=== PATIENT | female | born 1960 | race Caucasian/White ===

== ENCOUNTER 2017-03-19 19:03 | Emergency (ER) | payer OTHER ==
[2017-03-19 19:07] VITALS: BP 108/72; PULSE 73; TEMP 98.4; BMI 32.5
[2017-03-19] MEDS ORDERED: IBUPROFEN 600 MG TABLET (FP) PO ONE (19:09)
--- NOTE | 2017-03-19 19:09 | PDOC ---
History of Present Illness - General Chief Complaint: Injury Stated Complaint: B/L ANKLE PAIN Time Seen by Provider: 03/19/17 19:08 History Source: Patient Exam Limitations: No Limitations - History of Present Illness Initial Comments: 03/19/17 19:21 This is an obese 56-year-old female who 2 days ago slipped while going down the stairs and twisted her ankles bilateral. Patient said that she fell down the stairs primarily on her butt. She did not hit her head did not pass out denies any other injuries. Patient said since falling on the stairs that she has had increased pain in her ankles bilateral but did not take anything for the pain. PAST MEDICAL HISTORY: no significant history PAST SURGICAL HISTORY: no significant history FAMILY HISTORY: no pertinant history SOCIAL HISTORY: Pt lives with family and is employed. MEDICATIONS: reviewed ALLERGIES: As per nursing notes Review of Systems General: No fevers or chills, no weakness, no weight loss HEENT: No change in vision. No sore throat,. No ear pain CardioVascular: No chest pain or shortness of breath Respiratory:No cough, or wheezing. Gastrointestinal: no nausea, vomitting, diarrhea or constipation, No rectal bleeding Genitourinary: No dysuria, hematuria, or frequency Musculoskeletal: Bilateral ankle pain Neurologic: No headache, vertigo, dizziness or loss of consciousness Psychiatric: nor depression Skin: No rashes or easy bruising Endocrine: no increased thirst or abnormal weight change Allergic: no skin or latex allergy All other systems reviewed and normal GENERAL: The patient is awake, alert, and fully oriented, in no acute distress. HEAD: Normal with no signs of trauma. EYES: Pupils equal, round and reactive to light, extraocular movements intact, sclera anicteric, conjunctiva clear. EXTREMITIES: There is some mild swelling and tenderness on palpation bilateral of the lateral malleolus. There is no tenderness on palpation base of fifth metatarsal neurovascular distal is intact. NEUROLOGICAL: Normal speech, normal gait. PSYCH: Normal mood, normal affect. SKIN: Warm, Dry, normal turgor, no rashes or lesions noted. 03/19/17 19:39 X-rays ankles bilateral no acute bony pathology no fractures or dislocations reviewed by me Assessment and plan: This is a 56-year-old female who comes in complaining of bilateral ankle pain and discomfort status post going down the stairs on her butt and twisting her ankles bilateral 2 days ago. Patient is been able to ambulate with some difficulty but hasn't taken anything for the pain. Patient had x-rays were negative for any fractures. Patient given Motrin here in the ER for pain and discharged home and can follow-up with her primary care doctor Past History - Past Medical History Allergies/Adverse Reactions: Allergies Allergy/AdvReac Type Severity Reaction Status Date / Time No Known Allergies Allergy Verified 01/06/17 20:31 Home Medications: Ambulatory Orders NK [No Known Home Medication] 03/19/17 HTN: Yes Seizures: Yes - Psycho/Social/Smoking Cessation Hx Anxiety: No Suicidal Ideation: No Smoking History: Current some day smoker Have you smoked in the past 12 months: Yes Number of Cigarettes Smoked Daily: 1 Information on smoking cessation initiated: Yes 'Breaking Loose' booklet given: 05/18/14 Hx Alcohol Use: Yes (SOCIAL) Drug/Substance Use Hx: No Substance Use Type: None Hx Substance Use Treatment: No *Physical Exam - Vital Signs Last Vital Signs Temp Pulse Resp BP Pulse Ox 98.4 F 73 16 108/72 99 03/19/17 19:05 03/19/17 19:05 03/19/17 19:05 03/19/17 19:05 03/19/17 19:05 *DC/Admit/Observation/Transfer Diagnosis at time of Disposition: Sprain of right ankle Qualifiers: Encounter type: initial encounter Involved ligament of ankle: unspecified ligament Qualified Code(s): S93.401A - Sprain of unspecified ligament of right ankle, initial encounter Sprain of left ankle Qualifiers: Encounter type: initial encounter Involved ligament of ankle: unspecified ligament Qualified Code(s): S93.402A - Sprain of unspecified ligament of left ankle, initial encounter - Discharge Dispostion Disposition: HOME Condition at time of disposition: Stable Admit: No - Patient Instructions Printed Discharge Instructions: Ankle Sprain Additional Instructions: Purchase some [id number] ibuprofen or Aleve and take as directed on the bottle as needed for pain. Wear the Chao wrap as needed for additional support when walking. Return to the emergency department immediately with ANY new, persistent or worsening symptoms. Continue any medications as previously prescribed by your physician. You should follow up with your primary doctor as soon as possible regarding today's emergency department visit. . Please make sure your doctor reviews the results of your emergency evaluation. Thank you for coming to the Emergency Department today for your care. It was a pleasure to see you today. Please note that your evaluation is INCOMPLETE until you follow-up with your doctor.
== END 2017-03-19 19:48 | disposition home or self-care (01) ==
LOC: FER 19:03
DX: S93.401A Sprain of unspecified ligament of right ankle, initial encounter (principal); S93.402A Sprain of unspecified ligament of left ankle, initial encounter; W10.9XXA Fall (on) (from) unspecified stairs and steps, initial encounter; Y93.89 Activity, other specified; Y92.9 Unspecified place or not applicable; F17.210 Nicotine dependence, cigarettes, uncomplicated; I10 Essential (primary) hypertension
CPT/HCPCS: 73610-TC-LT; 73610-TC-RT; 99281-25

== ENCOUNTER 2017-07-31 23:32 | Emergency (ER) | payer OTHER ==
--- NOTE | 2017-07-31 23:35 | PDOC ---
History of Present Illness - General Stated Complaint: PASSED OUT Time Seen by Provider: 07/31/17 23:34 Past History - Past Medical History Allergies/Adverse Reactions: Allergies Allergy/AdvReac Type Severity Reaction Status Date / Time No Known Allergies Allergy Verified 01/06/17 20:31 Home Medications: Ambulatory Orders Nitrofurantoin Monohyd/M-Cryst [Macrobid -] 100 mg PO BID #14 capsule 08/01/17 HTN: Yes Seizures: Yes - Suicide/Smoking/Psychosocial Hx Smoking History: Current some day smoker Have you smoked in the past 12 months: Yes Number of Cigarettes Smoked Daily: 1 'Breaking Loose' booklet given: 05/18/14 Hx Alcohol Use: Yes (SOCIAL) Drug/Substance Use Hx: No Substance Use Type: None Hx Substance Use Treatment: No Review of Systems - Review of Systems Constitutional: Yes: Loss of Appetite, Weakness. No: Symptoms Reported, See HPI , Chills, Diaphoresis, Fever, Malaise, Night Sweats, Weight Stable, Unintentional Wgt. Loss, Unexplained wgt Loss, Other HEENTM: No: Symptoms Reported, See HPI, Eye Pain, Blurred Vision, Tearing, Recent change in vision, Double Vision, Cataracts, Ear Pain, Ocular Prothesis, Ear Discharge, Nose Pain, Nose Congestion, Tinnitus, Nose Bleeding, Hearing Loss , Throat Pain, Throat Swelling, Mouth Pain, Dental Problems, Difficulty Swallowing, Mouth Swelling, Other Respiratory: No: Symptoms reported, See HPI, Cough, Orthopnea, Shortness of Breath, SOB with Exertion, SOB at Rest, Stridor, Wheezing, Productive cough, Hemoptysis, Other Cardiac (ROS): No: Symptoms Reported, See HPI, Chest Pain, Edema, Irregular Heart Rate, Lightheadedness, Palpitations, Syncope, Chest Tightness, Other ABD/GI: No: Symptoms Reported, See HPI, Abdominal Distended, Abd. Pain w/ defecation, Blood Streaked Bowels, Constipated, Diarrhea, Difficulty Swallowing , Nausea, Poor Appetite, Poor Fluid Intake, Rectal Bleeding, Vomiting, Indigestion, Abdominal cramping, Tarry Stools, Other : No: Symptoms Reported, See HPI, Burning, Dysuria, Discharge, Frequency, Flank Pain, Hematuria, Incontinence, Pain, Urgency, Testicular Mass, Testicular Swelling, Lesions, Testicular Pain, Other Musculoskeletal: No: Symptoms Reported, See HPI, Back Pain, Gout, Joint Pain, Joint Swelling, Muscle Pain, Muscle Weakness, Neck Pain, Joint Stiffness, Other Integumentary: No: Symptoms Reported, See HPI, Bruising, Change in Color, Change in Hair/Nails, Dryness, Erythema, Flushing, Lesions, Lumps, Pallor, Pruritus, Rash, Sweating, Other Neurological: Yes: Weakness, Dizziness. No: Symptoms reported, See HPI, Headache, Numbness, Paresthesia, Pre-Existing Deficit, Seizure, Tingling, Tremors, Unsteady Gait, Ataxia, Other Psychiatric: Yes: Anxiety, Depression, Stressors, Mood Swings. No: Frequent Crying, Sleep Pattern Change, Emotional Problems, Change in Appetite, Other Endocrine: No: Symptoms Reported, See HPI, Excessive Sweating, Flushing, Intolerance to Cold, Intolerance to Heat, Increased Hunger, Increased Thirst, Increased Urine, Unexplained Weight Gain, Unexplained Weight Loss, Change in Weight, Other Hematologic/Lymphatic: No: Symptoms Reported, See HPI, Anemia, Blood Clots, Easy Bleeding, Easy Bruising, Bleeding Diathesis, Lymph Node Abnormalities, Swollen Glands, Other *Physical Exam - Physical Exam General Appearance: Yes: Nourished, Appropriately Dressed. No: Apparent Distress HEENT: positive: EOMI, TONYA, Normal ENT Inspection, Normal Voice, Symmetrical, TMs Normal, Pharynx Normal Neck: positive: Trachea midline, Supple Respiratory/Chest: positive: Lungs Clear, Normal Breath Sounds Cardiovascular: positive: Regular Rhythm, Regular Rate, S1, S2 Gastrointestinal/Abdominal: positive: Normal Bowel Sounds, Flat, Soft Musculoskeletal: positive: Normal Inspection. negative: CVA Tenderness Extremity: positive: Normal Capillary Refill, Normal Inspection, Normal Range of Motion, Tender, Pelvis Stable Integumentary: positive: Normal Color, Dry, Warm Neurologic: positive: automobile drivers II-XII NML intact, Fully Oriented, Alert, Normal Mood/ Affect, Normal Response, Motor Strength 5/5 Deep Tendon Reflexes: Ankle (L): 2+, Ankle (R): 2+, Knee (L): 2+, Knee (R): 2+, Bicep (L): 2+, Bicep (R): 2+ ED Treatment Course - LABORATORY CBC & Chemistry Diagram: 08/01/17 00:01 08/01/17 00:01 - ADDITIONAL ORDERS Additional order review: 08/01/17 02:56 labs are normal; UA is cloudy; pt will be treated for UTI/cystitis - RADIOLOGY Radiology Studies Ordered: 08/01/17 02:[address] normal Medical Decision Making - Medical Decision Making 08/01/17 00:43 Patient Name: KARLIE ROBERTO THIS IS A PRELIMINARY REPORT FROM [facility] DATE OF SERVICE: 2017-07-31 23:35:06 IMAGES: 69 EXAM: CT HEAD WITHOUT CONTRAST No acute brain parenchymal abnormality. No hemorrhage, mass or acute territorial infarct. Age-related involutional changes and chronic small vessel ischemic changes. Opacification one right ethmoid air cell. Visualized mastoid air cells clear. THIS DOCUMENT HAS BEEN ELECTRONICALLY SIGNED *DC/Admit/Observation/Transfer Diagnosis at time of Disposition: Weakness, Decreased appetite, UTI (urinary tract infection) - Discharge Dispostion Disposition: HOME Condition at time of disposition: Stable Admit: No - Prescriptions Prescriptions: Nitrofurantoin Monohyd/M-Cryst [Macrobid -] 100 mg PO BID #14 capsule - Patient Instructions Printed Discharge Instructions: DI for Muscle Weakness
[2017-07-31] MEDS ORDERED: SODIUM CHLORIDE 0.9% 500 ML INFUS.BAG IV ONE (23:43)
[2017-08-01 00:35] LABS: BASOPHIL 0.7 % (0-2.0); EOSINOPHIL 2.2 % (0-4.5); MCH 29.3 pg (25.7-33.7); MCHC 33.9 g/dl (32.0-36.0); MEAN CELL VOLUME 86.5 fl (80-96); MEAN PLT VOLUME 9.5 fl (7.5-11.1); NEUTROPHILS 42.9 % (42.8-82.8); PLATELET COUNT 232 K/MM3 (134-434); RDW 14.8 % (11.6-15.6); WHITE BLOOD COUNT 7.7 K/mm3 (4.0-10.0)
[2017-08-01 00:48] LABS: INR 1.19 (0.82-1.09); PROTHROMBIN TIME (PATIENT) 13.1 SEC (9.98-11.88)
[2017-08-01 00:57] LABS: ALBUMIN 3.8 g/dl (3.4-5.0); ANION GAP 11 (8-16); BILIRUBIN,TOTAL 0.8 mg/dL (0.2-1.0); CALCIUM 9.1 mg/dL (8.5-10.1); CO2 26 mmol/L (21-32); CREATININE 0.8 mg/dL (0.55-1.02); GLUCOSE,RANDOM 100 mg/dL (74-106); SGOT/AST 28 U/L (15-37); SGPT/ALT 46 U/L (12-78); TOT PROT 7.1 g/dl (6.4-8.2)
[2017-08-01 00:58] LABS: ALK PHOS 63 U/L (45-117)
[2017-08-01] MEDS ORDERED: SODIUM CHLORIDE 0.9% 1000 ML INFUS.BAG IV ONE (01:42)
[2017-08-01] MEDS ORDERED: NITROFURANTOIN MACROCRYSTAL 50 MG CAPSULE (FP) PO SCH (01:45)
[2017-08-01] MEDS ORDERED: NITROFURANTOIN MACROCRYSTAL 50 MG CAPSULE (FP) ONE (01:51)
[2017-08-01 02:02] VITALS: BP 122/80; PULSE 72; TEMP 97.3; BMI 33.4
[2017-08-01 02:05] LABS: URINE APPEARANCE CLOUDY; URINE BILIRUBIN NEGATIVE (NEGATIVE); URINE BLOOD 3+ (NEGATIVE); URINE COLOR YELLOW; URINE GLUCOSE (UA) NEGATIVE (NEGATIVE); URINE KETONE NEGATIVE (NEGATIVE); URINE NITRITE NEGATIVE (NEGATIVE); URINE PROTEIN NEGATIVE (NEGATIVE); URINE UROBILINOGEN NEGATIVE mg/dL (0.2-1.0)
[2017-08-01 02:13] LABS: URINE BACTERIA FEW /hpf (NONE SEEN); URINE HYALINE CAST 1 /lpf; URINE MUCUS RARE; URINE RBC 11 /hpf (0-3); URINE WBC 12 /hpf (3-5)
[2017-08-01 11:09] LABS: URINE LEUK ESTERASE TRACE (NEGATIVE)
== END 2017-08-01 02:27 | disposition home or self-care (01) ==
LOC: FER 23:32
PROC: 3E0337Z Introduction of Electrolytic and Water Balance Substance into Peripheral Vein, Percutaneous Approach (ICD-10-PCS; principal; 2017-07-31)
DX: N39.0 Urinary tract infection, site not specified (principal); R53.1 Weakness; R63.0 Anorexia
CPT/HCPCS: 36415; 70450-TC; 80053; 80178; 81003; 81015; 85025; 85610; 99282-25

== ENCOUNTER 2018-03-01 13:22 | Emergency (ER) | payer OTHER ==
--- NOTE | 2018-03-01 13:24 | PDOC ---
History of Present Illness - General Chief Complaint: Overdose Stated Complaint: PER TOOK TOO MANY PILLS Time Seen by Provider: 03/01/18 13:24 History Source: Patient, Spouse Exam Limitations: Clinical Condition - History of Present Illness Initial Comments: 57 yo F history chronic back pain presents with OD on unknown substance. Very limited history from patient, who is somewhat lethargic. She states she took about 6-7 pills approximately 1 hour ago due to pain. She denies SI. states he does not know her medications, and apparently the pills were all sitting in a drawer, so he took them and threw them all away. He did keep the bottles. Past History - Past Medical History Allergies/Adverse Reactions: Allergies Allergy/AdvReac Type Severity Reaction Status Date / Time No Known Allergies Allergy Verified 03/01/18 13:29 Home Medications: Ambulatory Orders Gabapentin [Neurontin -] 100 mg PO Q8H 03/01/18 Meloxicam 15 mg PO PRN 03/01/18 Omeprazole 40 mg PO DAILY 03/01/18 Pravastatin Sodium [Pravachol (Nf)] 40 mg PO DAILY 03/01/18 Tramadol HCl 50 mg PO PRN 03/01/18 HTN: Yes Psychiatric Problems: Yes Seizures: Yes - Suicide/Smoking/Psychosocial Hx Smoking History: Current some day smoker Have you smoked in the past 12 months: Yes Number of Cigarettes Smoked Daily: 1 'Breaking Loose' booklet given: 05/18/14 Hx Alcohol Use: Yes (SOCIAL) Drug/Substance Use Hx: No Substance Use Type: None Hx Substance Use Treatment: No Review of Systems - Review of Systems Able to Perform ROS?: No *Physical Exam - Physical Exam Comments: GENERAL: Lethargic, responds to verbal stimuli, answers some qusetions. No acute distress HEAD: No signs of trauma EYES: PERRLA, EOMI, sclera anicteric, conjunctiva clear ENT: Auricles normal inspection, hearing grossly normal, nares patent, oropharynx clear without exudates. Dry mucosa NECK: Normal ROM, supple, no lymphadenopathy, JVD, or masses LUNGS: Breath sounds equal, clear to auscultation bilaterally. No wheezes, and no crackles HEART: Regular rate and rhythm, normal S1 and S2, no murmurs, rubs or gallops ABDOMEN: Soft, nontender, normoactive bowel sounds. No guarding, no rebound. No masses EXTREMITIES: Normal range of motion, no edema. No clubbing or cyanosis. No cords, erythema, or tenderness NEUROLOGICAL: CN II-XII grossly intact. Moving all extremities. Motor and sensation intact. SKIN: Warm, Dry, normal turgor, no rashes or lesions noted. Heart Score/ECG Review - ECG Impressions Comment:: EKG read 13:43- Sinus tach 105, QTc 462. Occasional PVCs. ED Treatment Course - LABORATORY CBC & Chemistry Diagram: 03/01/18 13:59 03/01/18 13:59 Medical Decision Making - Critical Care Time Total Critical Care Time (minutes): 45 Critical Care Statement: The care of this patient involved high complexity decision making to prevent further life threatening deterioration of the patient 's condition and/or to evaluate & treat vital organ system(s) failure or risk of failure. - Medical Decision Making 03/01/18 13:36 Contacted patient's pharmacy to determine her medication- meloxicam, gabapentin , and tramadol. As her pupils are not constricted, tramadol is unlikely. The gabapentin is in capsule form, and patient states she did not take any capsules. Meloxicam unlikely, as it is more likely to cause GI symptoms than lethargy. is attempting to get all pill bottles from home. 03/01/18 13:40 Other medications available in the house included fluvoxamine and quetiapine. Patient has a normal QTc on EKG. Fluvoxamine more likely to cause serotonin syndrome, which is not consistent with patient's clinical appearance. 03/01/18 13:48 Case d/w Natail at [facility] poison control. Now states she may have had xanax, as he has it at home. As per poison control, will not give activated charcoal in light of lethargy, risk of aspiration. Also if this is xanax, symptoms may worsen. This may be a combination of meds, which may include tramadol, xanax, meclizine, and/or gabapentin. Recommended supportive care, f/u labs. Will call back to f/u. 03/01/18 16:40 Patient is intermittently asleep and awake. She is more alert than before, but still drowsy. Lab called with positive tox screen. Now both patient and deny any benzos in the house, however, she "grabbed pills from a drawer", so they cannot be certain. Will continue to monitor until she is more alert, then will DC home. 03/01/18 18:01 Awake and alert. Stable for DC home. *DC/Admit/Observation/Transfer Diagnosis at time of Disposition: Benzodiazepine overdose Qualifiers: Encounter type: initial encounter Injury intent: accidental or unintentional Qualified Code(s): T42.4X1A - Poisoning by benzodiazepines, accidental ( unintentional), initial encounter - Discharge Dispostion Disposition: HOME Condition at time of disposition: Stable Admit: No - Referrals - Patient Instructions Printed Discharge Instructions: DI for Drug Overdose in Adults Additional Instructions: In the future, DO NOT use medications that were not prescribed to you. Do NOT use medications in a manner that was not prescribed (for example, taking extra pills). This is extremely dangerous, especially if you are not even aware of what the pills are. If you have severe pain in the future, seek treatment with either your physician or in an emergency room, so that it may be done safely. - Post Discharge Activity
[2018-03-01] MEDS ORDERED: SODIUM CHLORIDE 1,000 ML IV STA ×2 (13:31→14:28)
[2018-03-01 13:58] VITALS: TEMP 97; BMI 27.3
[2018-03-01 14:09] LABS: BASO % 0.5 % (0-2.0); EOS % 2.4 % (0-4.5); HEMATOCRIT 37.5 % (32.4-45.2); HEMOGLOBIN 13.1 GM/dl (10.7-15.3); LYMPH % 30.8 % (8-40); MCH 30.6 pg (25.7-33.7); MEAN CELL VOLUME 87.7 fl (80-96); MEAN PLT VOLUME 8.9 fl (7.5-11.1); MONO % 6.1 % (3.8-10.2); NEUT % 60.2 % (42.8-82.8); PLATELET COUNT 259 K/MM3 (134-434); RBC 4.27 M/mm3 (3.60-5.2); RDW 12.4 % (11.6-15.6); WHITE BLOOD COUNT 8.2 K/mm3 (4.0-10.8)
[2018-03-01 14:24] LABS: INR 1.09 (0.82-1.09); PROTHROMBIN TIME (PATIENT) 12.2 SEC (10.2-13.0)
[2018-03-01 14:28] LABS: ALBUMIN 3.7 g/dl (3.5-5.0); ALK PHOS 57 U/L (32-92); ANION GAP 6 (8-16); BILIRUBIN,TOTAL 0.7 mg/dl (0.2-1.0); BLOOD UREA NITROGEN 10 mg/dl (7-18); CALCIUM 8.6 mg/dl (8.4-10.2); CHLORIDE 102 mmol/L (98-107); CO2 26 mmol/L (22-28); GLUCOSE,RANDOM 105 mg/dl (74-106); POTASSIUM 3.6 mmol/L (3.5-5.1); SGOT/AST 26 U/L (10-42); SGPT/ALT 26 U/L (10-40); SODIUM 134 mmol/L (136-145); TOT PROT 6.5 g/dl (6.4-8.3)
[2018-03-01 14:35] LABS: CREATININE < 0.8 mg/dl (0.6-1.3)
[2018-03-01 16:14] LABS: LIPASE 79 U/L (73-393)
[2018-03-01 16:21] LABS: PH,URINE 7.5 (4.5-8); URINE APPEARANCE Clear; URINE BILIRUBIN Negative (NEGATIVE); URINE GLUCOSE (UA) Negative (NEGATIVE); URINE KETONE Negative (NEGATIVE); URINE NITRITE Negative (NEGATIVE); URINE PROTEIN Negative (NEGATIVE); URINE UROBILINOGEN 0.2 (0.2-1.0)
[2018-03-01 16:23] LABS: SALICYLATE < 1.700 mg/dL
[2018-03-01 16:35] LABS: URINE BLOOD Trace-lysed (NEGATIVE); URINE COLOR YELLOW; URINE LEUK ESTERASE 1+ (NEGATIVE)
[2018-03-01 16:42] LABS: ACETAMINOPHEN <0.02 ug/mL
[2018-03-01 16:47] LABS: COCAINE, UR NEGATIVE ng/ml (CUTOFF=300); METHADONE, UR NEGATIVE ng/ml (CUTOFF=300); OPIATES, URI NEGATIVE ng/ml (CUTOFF=300); PHENCYCLIDINE,URINE NEGATIVE ng/ml (CUTOFF=25); URINE AMPHETAMINES NEGATIVE ng/ml (CUTOFF=500); URINE BARBITURATES NEGATIVE ng/ml (CUTOFF=200); URINE BENZODIAZEPINES POSITIVE ng/ml (CUTOFF=200)
[2018-03-01 17:10] LABS: URINE RBC 0-2 /hpf (0-3)
[2018-03-01 17:11] LABS: URINE BACTERIA FEW /hpf (NEGATIVE)
[2018-03-01 18:01] VITALS: BP 125/61; PULSE 92
--- NOTE | 2018-03-01 19:52 | EKG ---
Test Reason : Blood Pressure : / mmHG Vent. Rate : 105 BPM Atrial Rate : 105 BPM P-R Int : 176 ms QRS Dur : 084 ms QT Int : 350 ms P-R-T Axes : 044 -30 061 degrees QTc Int : 462 ms SINUS TACHYCARDIA WITH OCCASIONAL PREMATURE VENTRICULAR COMPLEXES LEFT AXIS DEVIATION ABNORMAL ECG WHEN COMPARED WITH ECG OF 06-JAN-2017 21:17, PREMATURE VENTRICULAR COMPLEXES ARE NOW PRESENT Confirmed by EMMA PINK, MARIAA ([id number]) on 03/01/2018 7:52:04 PM Referred By: KEVYN ABAD Confirmed By:MARIAA CARTER MD
== END 2018-03-01 18:22 | disposition home or self-care (01) ==
LOC: FER 13:22
PROC: 3E0337Z Introduction of Electrolytic and Water Balance Substance into Peripheral Vein, Percutaneous Approach (ICD-10-PCS; principal; 2018-03-01)
DX: T42.4X1A Poisoning by benzodiazepines, accidental (unintentional), initial encounter (principal); X58.XXXA Exposure to other specified factors, initial encounter; Y93.89 Activity, other specified; Y92.9 Unspecified place or not applicable; I10 Essential (primary) hypertension; F17.210 Nicotine dependence, cigarettes, uncomplicated; F99 Mental disorder, not otherwise specified
CPT/HCPCS: 36415; 80053; 80307; 81003; 81015; 82140; 82550; 83605; 83690; 84484; 85025; 85610; 86850; 86900; 86901; 93005; 96360; 96361; 99285-25; J7030

== ENCOUNTER 2019-02-19 09:23 | Emergency (ER) | payer OTHER ==
--- NOTE | 2019-02-19 09:28 | PDOC ---
History of Present Illness - General Chief Complaint: Injury Stated Complaint: FELL, L ANKLE PAIN Time Seen by Provider: 02/19/19 09:26 History Source: Patient Exam Limitations: No Limitations - History of Present Illness Initial Comments: 58 yo morbidly obese F w a pmh of chronic back pain, HTN, pseudoseizures, substance usage w hx of OD, presents to the [facility] after a mechanical fall where she states that she tripped on a pothole and twisted her left ankle. The fall happened 45 minutes prior to presenting to the ER. She states she believes she rolled her foot by hyper-inverting her ankle. She was not able to ambulate at the scene of the fall and is not able to ambulate on her ankle here in the ED. She states she fell down and was not able to get up for 6 minutes so she called her who brought her into the ED. She rates her pain as 9/10 at the present time and states her entire left foot and ankle are in pain. She has a remote history of twisting her right ankle but this is the first time she has injured her left ankle. She denies having any knee pain and denies experiencing any trauma to any other body part aside from twisting her left ankle. She denies hitting her head, arms, hips or any ribs. She denies taking any blood thinners. Denies experiencing any LOC. Denies having experienced chest pain, blurry vision, SOB, difficulty breathing, lightheadedness, n/v or other prodromal symptoms prior to the fall. PCP: Christiano Benton PSH: Social Hx: Denies smoking, drinking, or other substance usage Allergies: Allergic to dogs and other pets, NKDA Past History - Past Medical History Allergies/Adverse Reactions: Allergies Allergy/AdvReac Type Severity Reaction Status Date / Time No Known Allergies Allergy Verified 02/19/19 09:29 Home Medications: Ambulatory Orders Naproxen 500 mg PO BID #14 tablet 02/19/19 Oxycodone HCl/Acetaminophen [Percocet 5-325 mg Tablet] 1 tab PO TID PRN #10 tablet MDD 3 tabs 02/19/19 COPD: No HTN: Yes Psychiatric Problems: Yes Seizures: Yes - Suicide/Smoking/Psychosocial Hx Smoking History: Current some day smoker Have you smoked in the past 12 months: Yes Number of Cigarettes Smoked Daily: 1 If you are a former smoker, when did you quit?: 2B YEARS 'Breaking Loose' booklet given: 05/18/14 Hx Alcohol Use: Yes (SOCIAL) Drug/Substance Use Hx: No Substance Use Type: None Hx Substance Use Treatment: No Review of Systems - Review of Systems Able to Perform ROS?: Yes Comments:: CONSTITUTIONAL: Absent: fever, no chills, no fatigue EYES: Absent: visual changes ENT: Absent: ear pain, no sore throat CARDIOVASCULAR: Absent: chest pain, no palpitations RESPIRATORY: Absent: cough, no SOB GI: Absent: abdominal pain, no nausea, no vomiting, no constipation, no diarrhea GENITOURINARY: Absent: dysuria, no frequency, no hematuria MUSKULOSKELETAL: Present: Arthralgia Absent: back pain, no myalgia SKIN: Absent: rash NEURO: Absent: headache *Physical Exam - Physical Exam Comments: LEFT ANKLE: The lateral maleolus is swollen and tender to touch. There is 2+ DP and PT pulses. There is no discoloration or bruising. There is mild tenderness in the medial malleoli region. There is minimal TTP in the base of the 5th metatarsal bone. There is decreased ROM of the ankle in every direction. Patient cannot bear weight on the ankle at present time. There is no navicular bone tenderness. Patient has complete an normal sensation in her ankle and foot. RIGHT ANKLE: There is no extremity deformity or joint swelling. No focal bony tenderness throughout. 2+ distal pulses. GENERAL: Well-appearing, well-nourished. No apparent distress. HEENT: Normocephalic, atraumatic. PERRL, EOM intact. CARDIOVASCULAR: Normal S1, S2. Regular rate and rhythm. PULMONARY: No evidence of respiratory distress. Lungs clear to auscultation bilaterally. No wheezing, rales or rhonchi. ABDOMEN: Soft, non-distended, non-tender. EXTREMITIES: Normal ROM in other 3 extremities. No gross deformities other than left ankle. SKIN: Warm, dry. No rash NEUROLOGICAL: No focal neurological deficits. ED Treatment Course - RADIOLOGY Radiograph Interpretation: 3 views of the left ankle reveal lateral swelling, distal fibular fracture, slightly widened mortise and calcaneal spurring. 3 views of the left foot reveal bunion formation by the first MTP joint with some other arthritic changes in the toes. An acute foot fracture is not seen. There is no sign of a foreign body or soft tissue air. Impression: Arthritic changes. Distal fibular fracture with swelling. Correlation recommended. Medical Decision Making - Medical Decision Making 58 yo Morbidly obese F experienced mechanical fall and inverted her lance. VS: WNL Left Ankle: The lateral maleolus is swollen and tender to touch. There is 2+ DP and PT pulses. There is no discoloration or bruising. There is mild tenderness in the medial malleoli region. There is minimal TTP in the base of the 5th metatarsal bone. There is decreased ROM of the ankle in every direction. Patient cannot bear weight on the ankle at present time. There is no navicular bone tenderness. Patient has complete an normal sensation in her ankle and foot. DDx IBNLT: Ankle sprain, ankle dislocation, fracture, ligament vs tendon injury , foot injury - metatarsal vs navicular. Plan: Ankle + foot x-rays, analgesia, re-assess, splint, ortho FU. Ankle x-ray shows: Distal fibular avulsion fracture. Will apply a posterior splint and a stir-up splint for patient then DC with ortho follow up in the next 7-10 days. *DC/Admit/Observation/Transfer Diagnosis at time of Disposition: Fracture of distal end of left fibula - Discharge Dispostion Disposition: HOME Condition at time of disposition: Good Decision to Admit order: No - Prescriptions Prescriptions: Naproxen 500 mg PO BID #14 tablet Oxycodone HCl/Acetaminophen [Percocet 5-325 mg Tablet] 1 tab PO TID PRN #10 tablet MDD 3 tabs PRN Reason: Pain - Referrals Referrals: Miah Savage DO [Staff Physician] - - Patient Instructions Printed Discharge Instructions: DI for Ankle Fracture, Fibula Shaft Fracture Additional Instructions: You came into the ER after you twisted your ankle. We did an X-ray which showed you fractured the distal part of your fibula bone. We applied a splint to immobilize your ankle and help it heal. We also gave you crutches to help you walk. Drink plenty of fluids and take naproxyn and percocet as needed for pain control. We are sending these meds to your pharmacy - please make sure to go and pick them up. Please make sure to call up an orthopedist and schedule a follow up appointment in the next 7-10 days to make sure your foot is healing appropriately and you are on the right track for rehab and recuperation. We have attached the number of an orthopedist for you to call in case you don't already have an orthopedist. Come back to the ER immediately if your pain becomes worse, if you get a fever, start vomiting, have extreme ankle/foot pain, or have any other new or worsening concerns. Thank you for coming to the [facility]. We hope you feel better soon! Print Language: LUXEMBOURGER - Post Discharge Activity
[2019-02-19 09:37] VITALS: BP 122/78; PULSE 72; TEMP 98.7; BMI 31.9
[2019-02-19] MEDS ORDERED: IBUPROFEN 600 MG TABLET (FP) PO ONE ×2 (09:46→09:48)
--- NOTE | 2019-02-19 11:09 | PDOC ---
Attending Attestation - Resident Resident Name: ChaloelNikolas - ED Attending Attestation I have performed the following: I have examined & evaluated the patient, The case was reviewed & discussed with the resident, I agree w/resident's findings & plan, Exceptions are as noted - HPI HPI: 02/19/19 11:07 58 F with mechanical fall today, now presenting with L ankle pain. Pt states she stepped in a pothole, tripping and inverting her L foot. Pt fell to the ground and was unable to bear weight on her L ankle afterwards. Denies headstrike/LOC. Denies any other extremity pain. Denies neck, back, hip pain. - Physicial Exam PE: 02/19/19 11:08 "GENERAL: Awake, alert, and fully oriented, in no acute distress. HEAD: No signs of trauma EYES: PERRLA, EOMI, sclera anicteric, conjunctiva clear ENT: Auricles normal inspection, hearing grossly normal, nares patent, oropharynx clear without exudates. Moist mucosa NECK: Nontender, no stepoffs, Normal ROM, supple, no lymphadenopathy, JVD, or masses LUNGS: Breath sounds equal, clear to auscultation bilaterally. No wheezes, and no crackles HEART: Regular rate and rhythm, normal S1 and S2, no murmurs, rubs or gallops ABDOMEN: Soft, nontender, normoactive bowel sounds. No guarding, no rebound. No masses EXTREMITIES: + L ankle swelling and TTP posterior lateral malleolus NEUROLOGICAL: Cranial nerves II through XII intact. 5/5 strength and sensation in all extremities, Normal speech, normal gait, normal cerebellar function SKIN: Warm, Dry, normal turgor, no rashes or lesions noted. - Medical Decision Making 02/19/19 11:09 58 F with L ankle pain after inverting it. Suspect ankle fx vs sprain. - Xray - motrin 02/19/19 11:44 X ray with distal fibula fx Pt placed in posterior short leg splint with sugartong Post-splinting neurovascular exam wnl Pt is well appearing, with normal vitals. Clinically stable for DC at this time. I discussed the physical exam findings, ancillary test results and final diagnoses with the patient. I answered all of the patient's questions. The patient was satisfied with the care received and felt comfortable with the discharge plan and treatment plan. The patient agrees to follow up with the primary care physician within 24-72 hours.
== END 2019-02-19 12:05 | disposition home or self-care (01) ==
LOC: FER 09:23
PROC: 2W3RX1Z Immobilization of Left Lower Leg using Splint (ICD-10-PCS; principal; 2019-02-19)
DX: S82.832A Other fracture of upper and lower end of left fibula, initial encounter for closed fracture (principal); W18.39XA Other fall on same level, initial encounter; Y93.89 Activity, other specified; Y92.410 Unspecified street and highway as the place of occurrence of the external cause; I10 Essential (primary) hypertension; G89.29 Other chronic pain; M54.9 Dorsalgia, unspecified; F19.90 Other psychoactive substance use, unspecified, uncomplicated; E66.01 Morbid (severe) obesity due to excess calories; Z68.31 Body mass index [BMI] 31.0-31.9, adult; F17.210 Nicotine dependence, cigarettes, uncomplicated
CPT/HCPCS: 29515; 73610-TC-LT-FY; 73630-TC-LT; 99283-25

== ENCOUNTER 2019-06-11 16:41 | Emergency (ER) | payer OTHER ==
--- NOTE | 2019-06-11 16:46 | PDOC ---
Attending Attestation - Resident Resident Name: Robbin Piedra - HPI HPI: 06/11/19 16:56 Pt presents to the ED complaining of globus sensation after eating watermelon. States that she ate the watermelon 30 minutes prior to arrival. Tolerating secretions. States that she has a foriegn body sensation in the lower portion of her neck. Denies prior similar episodes. 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 - Physicial Exam PE: 06/11/19 16:59 Agree with resident exam. Patient is alert and oriented and in no acute distress. Speaking in complete sentences without stridor. Tolerating secretions. oropharnynx mildly red, no swelling, uvula midline. - Medical Decision Making 06/11/19 17:01 Pt presents to the ED complaining of globus sensation after eating watermelon. No respiratory distress. Tolerating secretions. Will check CT neck to rule out esophageal food bolus. Will likely discharge home if negative.
--- NOTE | 2019-06-11 16:54 | PDOC ---
History of Present Illness - History of Present Illness Initial Comments: 06/11/19 16:47 Bhupendra Jean is a 58y previously healthy F presenting with choking. At 1630, she was eating watermelon, started choking on a piece lodged in her throat. Able to speak in sentences, tolerate own secretions. Tried self-vomiting, heimlich maneuver w/o relief. Denies fever, SOB, chest pain, urinary/bowel changes. <Robbin Piedra - Last Filed: 06/11/19 19:26> <Rusty Chaidez - Last Filed: 06/12/19 01:34> - General Chief Complaint: Choking Sensation Stated Complaint: WATERMELON STUCK IN THROAT Time Seen by Provider: 06/11/19 16:46 Past History - Past Medical History COPD: No HTN: Yes Psychiatric Problems: Yes Seizures: Yes - Suicide/Smoking/Psychosocial Hx Smoking History: Current some day smoker Have you smoked in the past 12 months: Yes Number of Cigarettes Smoked Daily: 1 If you are a former smoker, when did you quit?: 2B YEARS 'Breaking Loose' booklet given: 05/18/14 Hx Alcohol Use: Yes (SOCIAL) Drug/Substance Use Hx: No Substance Use Type: None Hx Substance Use Treatment: No <Robbin Piedra - Last Filed: 06/11/19 19:26> <Rusty Chaidez - Last Filed: 06/12/19 01:34> - Past Medical History Allergies/Adverse Reactions: Allergies Allergy/AdvReac Type Severity Reaction Status Date / Time No Known Allergies Allergy Verified 06/11/19 16:44 Home Medications: Ambulatory Orders Naproxen 500 mg PO BID #14 tablet 02/19/19 Oxycodone HCl/Acetaminophen [Percocet 5-325 mg Tablet] 1 tab PO TID PRN #10 tablet MDD 3 tabs 02/19/19 Review of Systems - Review of Systems Constitutional: No: Chills, Fever HEENTM: Yes: Throat Pain. No: Eye Pain, Ear Pain, Nose Pain, Hearing Loss, Mouth Pain Respiratory: Yes: Cough. No: Shortness of Breath, Stridor Cardiac (ROS): No: Chest Pain, Edema, Lightheadedness, Palpitations ABD/GI: No: Abdominal Distended, Constipated, Diarrhea, Nausea, Vomiting : No: Burning, Dysuria, Discharge, Frequency, Flank Pain, Hematuria Musculoskeletal: No: Back Pain, Joint Pain, Joint Swelling, Muscle Pain Integumentary: No: Bruising, Change in Color, Dryness, Erythema, Flushing Neurological: No: Headache, Paresthesia, Seizure, Tingling, Tremors Psychiatric: No: Anxiety, Depression Endocrine: No: Excessive Sweating, Flushing, Intolerance to Cold, Intolerance to Heat Hematologic/Lymphatic: No: Anemia, Blood Clots, Easy Bleeding <Robbin Piedra - Last Filed: 06/11/19 19:26> *Physical Exam - Physical Exam General Appearance: Yes: Nourished, Appropriately Dressed, Apparent Distress ( choking) HEENT: positive: EOMI, TONYA, Normal Voice, Symmetrical, Pharynx Normal, Hearing Grossly Normal. negative: Scleral Icterus (R), Scleral Icterus (L), Pharyngeal Erythema, Tonsillar Exudate, Tonsillar Erythema, Nasal Congestion, Lesions, Nelson Neck: positive: Trachea midline, Supple. negative: Tender, Rigid Respiratory/Chest: positive: Lungs Clear, Normal Breath Sounds. negative: Chest Tender, Respiratory Distress, Crackles, Rales, Rhonchi, Stridor, Wheezing Cardiovascular: positive: Regular Rhythm, Regular Rate, S1, S2. negative: Edema , Murmur Integumentary: positive: Normal Color Neurologic: positive: Fully Oriented, Alert, Normal Mood/Affect, Normal Response , Responsive. negative: Numbness, Confused, Disoriented <Robbin Piedra - Last Filed: 06/11/19 19:26> - Vital Signs Last Vital Signs Temp Pulse Resp BP Pulse Ox 99.1 F 85 16 146/90 97 06/11/19 16:42 06/11/19 19:03 06/11/19 19:03 06/11/19 19:03 06/11/19 16:42 <Rusty Chaidez - Last Filed: 06/12/19 01:34> ED Treatment Course - LABORATORY CBC & Chemistry Diagram: 06/11/19 17:10 06/11/19 17:10 <Robbin Piedra - Last Filed: 06/11/19 19:26> - LABORATORY CBC & Chemistry Diagram: 06/11/19 17:10 06/11/19 17:10 - ADDITIONAL ORDERS Additional order review: Laboratory Results 06/11/19 17:10 Sodium 136 Potassium 3.9 Chloride 104 Carbon Dioxide 22 Anion Gap 10 BUN 14.0 Creatinine 0.8 Est GFR (CKD-EPI)AfAm 93.53 Est GFR (CKD-EPI)NonAf 80.70 Random Glucose 135 H Calcium 9.3 Total Bilirubin 0.2 AST 23 ALT 21 Alkaline Phosphatase 64 Total Protein 7.6 Albumin 4.1 06/11/19 17:10 RBC 4.86 MCV 90.1 MCHC 33.9 RDW 12.6 MPV 10.1 Neutrophils % 47.9 Lymphocytes % 42.5 H Monocytes % 5.9 Eosinophils % 1.8 Basophils % 1.9 <Rusty Chaidez - Last Filed: 06/12/19 01:34> Medical Decision Making - Medical Decision Making 06/11/19 16:58 CT neck CBC CMP normal consider magic mouthwash, glucagon, GI consult endoscopy Bhupendra Jean is a 58y previously healthy F presenting with choking due to partial food impaction in esophagus. Normal O2sat, can speak in sentences, able to tolerate secretions. Pending CT neck. At 715p, bolus sensation relief after drinking Pepsi Cola. D/c home. 06/11/19 19:27 <Robbin Piedra - Last Filed: 06/11/19 19:26> - Medical Decision Making tolerating PO. stable for discharge 06/12/19 01:32 <Rusty Chaidez - Last Filed: 06/12/19 01:34> *DC/Admit/Observation/Transfer <Robbin Piedra - Last Filed: 06/11/19 19:26> <Rusty Chaidez - Last Filed: 06/12/19 01:34> Diagnosis at time of Disposition: Food impaction of esophagus Qualifiers: Encounter type: initial encounter Qualified Code(s): T18.128A - Food in esophagus causing other injury, initial encounter - Discharge Dispostion Disposition: HOME Condition at time of disposition: Good - Patient Instructions Printed Discharge Instructions: DI for Esophageal Dysphagia
[2019-06-11 17:06] VITALS: TEMP 99.1; BMI 31.8
[2019-06-11 17:31] LABS: BASO % 1.9 % (0-2.0); EOS % 1.8 % (0-4.5); HEMATOCRIT 43.8 % (32.4-45.2); HEMOGLOBIN 14.9 GM/dl (10.7-15.3); LYMPH % 42.5 % (8-40); MCH 30.5 pg (25.7-33.7); MCHC 33.9 g/dl (32.0-36.0); MEAN CELL VOLUME 90.1 fl (80-96); MEAN PLT VOLUME 10.1 fl (7.5-11.1); MONO % 5.9 % (3.8-10.2); NEUT % 47.9 % (42.8-82.8); PLATELET COUNT 321 K/MM3 (134-434); RBC 4.86 M/mm3 (3.60-5.2); RDW 12.6 % (11.6-15.6); WHITE BLOOD COUNT 10.8 K/mm3 (4.0-10.8)
[2019-06-11 17:43] LABS: ALBUMIN 4.1 g/dl (3.4-5.0); BILIRUBIN,TOTAL 0.2 mg/dl (0.2-1); CALCIUM 9.3 mg/dl (8.5-10); CREATININE 0.8 mg/dl (0.55-1.3); POTASSIUM 3.9 mmol/L (3.5-5.1); TOT PROT 7.6 g/dl (6.4-8.2)
[2019-06-11 19:04] VITALS: BP 146/90; PULSE 85
[2019-06-12] MEDS ORDERED: MAG HYDROX/ALH/SMC/DPHA/LIDO 240 ML MOUTHWASH MM SCH
== END 2019-06-11 19:29 | disposition home or self-care (01) ==
LOC: FER 16:41
DX: T18.128A Food in esophagus causing other injury, initial encounter (principal); Z87.891 Personal history of nicotine dependence; I10 Essential (primary) hypertension; F99 Mental disorder, not otherwise specified; R56.9 Unspecified convulsions
CPT/HCPCS: 36415; 70491-TC; 80053; 85025; 99283-25

== ENCOUNTER 2020-05-07 06:48 | Emergency (ER) | payer OTHER ==
[2020-05-07 06:54] VITALS: BMI 36.5
--- NOTE | 2020-05-07 07:21 | PDOC ---
History of Present Illness - General Stated Complaint: "I havent slept in 7 days" Time Seen by Provider: 05/07/20 07:19 - History of Present Illness Initial Comments: 05/07/20 07:56 Chief complaint: Insomnia HPI: Complains of not being able to sleep for several days. Lies awake all night staring at the ceiling. Under considerable stress from family problems and COVID. No medication. Review of systems: Admits feeling that she cannot take a deep breath, but denies jacey shortness of breath. Admits that her heart is pounding at night. But denies rapid or irregular heartbeat. Denies chest pain, abdominal pain, nausea, vomiting, diarrhea, visual or focal neurologic symptoms, unsteadiness of gait. Past medical history: Anxiety disorder, panic attacks, and therapy, speaks weekly by phone with a psychologist. This is helpful. Had "seizures" several years ago which were attributed to psychogenic origin. Never treated with medication. No history of high blood pressure, diabetes, coronary artery disease, lung disease, or cancer. Social history: Lives with , who is also under considerable stress. One child. Denies tobacco alcohol or drugs. Has gained "40 pounds" over the last year, little exercise. Family history: Reviewed and noncontributory including early coronary artery disease, metabolic disease including diabetes, cancer. Physical exam: Moderately obese female in no acute distress, resting comfortably in bed, continue on cooperative Afebrile, vital signs normal except for minimally elevated blood pressure PERRLA 4 mm, fundi benign, ENT clear Neck supple without bruit mass or nodes Lungs clear, full breath sounds bilaterally, no tachypnea or dyspnea CV S1-S2 distant without murmur rub or gallop pulses full and symmetric no JVD or edema no bruits 80 and regular Abdomen nondistended, bowel sounds normal, soft without mass tenderness organomegaly. No CVAT Extremities no CCE Skin clear, no rash, adequate turgor and wet mucous membranes Neurological C2 to 12 intact. Strength full and symmetric. No focal sensory or motor deficits. Gait stable and unimpaired. Cerebellar function intact Impression: Insomnia secondary to anxiety, stress. It is unlikely, but rule out occult coronary syndrome, occult infection. No physical signs of acute neurologic disease. Plan: CBC chemistries UA cardiac enzymes EKG chest x-ray and further evaluation treatment depending on results. Past History - Medical History Allergies/Adverse Reactions: Allergies Allergy/AdvReac Type Severity Reaction Status Date / Time No Known Allergies Allergy Verified 05/07/20 06:57 Home Medications: Ambulatory Orders NK [No Known Home Medication] 05/07/20 COPD: No HTN: Yes Psychiatric Problems: Yes Seizures: Yes - Immunization History Immunization Up to Date: Yes - Psycho-Social/Smoking History Smoking History: Never smoked Have you smoked in the past 12 months: Yes Number of Cigarettes Smoked Daily: 1 If you are a former smoker, when did you quit?: 2B YEARS 'Breaking Loose' booklet given: 05/18/14 *Physical Exam - Vital Signs Last Vital Signs Temp Pulse Resp BP Pulse Ox 98.2 F 84 18 156/95 100 05/07/20 06:51 05/07/20 06:51 05/07/20 06:51 05/07/20 06:51 05/07/20 06:51 ED Treatment Course - LABORATORY CBC & Chemistry Diagram: 05/07/20 08:30 05/07/20 08:30 Medical Decision Making - Medical Decision Making 05/07/20 10:15 CBC, chemistries including troponin, urinalysis with no significant abnormalities Chest x-ray and EKG WNL CT of the brain: Pending 05/07/20 10:59 CT is negative. Patient discharged with , in no pain or other distress, to follow-up with primary physician and neurologist as directed. Discharge - Discharge Information Problems reviewed: Yes Clinical Impression/Diagnosis: Reaction to severe stress Condition: Stable Disposition: HOME - Admission No - Follow up/Referral Referrals: Wyatt Osei MD [Staff Physician] - 1 week - Patient Discharge Instructions Patient Printed Discharge Instructions: Tips for Reducing Stress in Your Life - Post Discharge Activity
[2020-05-07] MEDS ORDERED: SODIUM CHLORIDE 500 ML IV STA (07:54)
[2020-05-07] MEDS ORDERED: LORazepam 2 MG/ML SDV VIAL ONE (08:30)
[2020-05-07 08:58] LABS: EOS % 1.1 % (0-4.5); HEMATOCRIT 40.5 % (32.4-45.2); HEMOGLOBIN 14.3 GM/dl (10.7-15.3); MCH 30.5 pg (25.7-33.7); MCHC 35.4 g/dl (32.0-36.0); MEAN CELL VOLUME 86.2 fl (80-96); MEAN PLT VOLUME 8.4 fl (7.5-11.1); MONO % 7.5 % (3.8-10.2); NEUT % 58.4 % (42.8-82.8); PLATELET COUNT 283 K/MM3 (134-434); RBC 4.69 M/mm3 (3.60-5.2); RDW 12.6 % (11.6-15.6); WHITE BLOOD COUNT 8.6 K/mm3 (4.0-10.8)
[2020-05-07 09:05] LABS: BILIRUBIN,TOTAL 0.5 mg/dl (0.2-1); CALCIUM 9.4 mg/dl (8.5-10); CREATININE 0.8 mg/dl (0.55-1.3); TOT PROT 7.3 g/dl (6.4-8.2)
[2020-05-07 09:47] VITALS: BP 134/68; PULSE 73; TEMP 98
--- NOTE | 2020-05-07 13:17 | EKG ---
Test Reason : Blood Pressure : / mmHG Vent. Rate : 063 BPM Atrial Rate : 063 BPM P-R Int : 160 ms QRS Dur : 080 ms QT Int : 414 ms P-R-T Axes : 040 -38 070 degrees QTc Int : 423 ms POOR DATA QUALITY, INTERPRETATION MAY BE ADVERSELY AFFECTED NORMAL SINUS RHYTHM LEFT AXIS DEVIATION ABNORMAL ECG WHEN COMPARED WITH ECG OF 01-MAR-2018 13:34, PREMATURE VENTRICULAR COMPLEXES ARE NO LONGER PRESENT VENT. RATE HAS DECREASED BY 42 BPM Confirmed by MD Cobos Daniel ([id number]) on 05/07/2020 1:16:23 PM Referred By: MD SANON Confirmed By:Grabiel Cobos MD
== END 2020-05-07 11:17 | disposition home or self-care (01) ==
LOC: FER 06:48
PROC: 3E0337Z Introduction of Electrolytic and Water Balance Substance into Peripheral Vein, Percutaneous Approach (ICD-10-PCS; principal; 2020-05-07)
PROC: 3E033GC Introduction of Other Therapeutic Substance into Peripheral Vein, Percutaneous Approach (ICD-10-PCS; principal; 2020-05-07)
DX: F43.0 Acute stress reaction (principal)
CPT/HCPCS: 36415; 70450-TC; 71045-TC-FY; 80053; 81003; 84484; 85025; 93005; 99285-25